=== PATIENT | male | born 1985 | race Two or more races ===

== ENCOUNTER 2021-08-10 21:02 | Emergency (ER) | payer SELFPAY ==
[~2021-08-10] VITALS: Ht 182.9 cm; Wt 90.9 kg
[2021-08-10 21:22] VITALS: BP 131/75
[2021-08-10] MEDS ORDERED: ketorolac trometh inj. 60 MG/2 ML VIAL IM ONE (23:10)
[2021-08-11] MEDS ORDERED: HYDR-3965 PO (00:07)
== END 2021-08-11 00:24 | disposition home or self-care (01) ==
LOC: ER 21:03
DX: S19.80XA Other specified injuries of unspecified part of neck, initial encounter (principal); M54.2 Cervicalgia; M54.50 Low back pain, unspecified; Z98.890 Other specified postprocedural states; Z79.899 Other long term (current) drug therapy; V99.XXXA Unspecified transport accident, initial encounter; Y93.89 Activity, other specified; Y92.89 Other specified places as the place of occurrence of the external cause; Y99.8 Other external cause status
CPT/HCPCS: 72040; 96372; 99284; J1885